=== PATIENT | male | born 1990 | race Caucasian/White ===

== ENCOUNTER 2019-08-09 12:32 | Emergency (ER) | payer MEDICAID ==
[~2019-08-09] VITALS: Ht 175.3 cm; Wt 68.0 kg
[2019-08-09 14:23] LABS: BASOPHILS % 0.6 % (0.0-2.0); EOSINOPHILS % 3.5 % (0.0-5.0); HEMATOCRIT. 42.4 % (42.0-52.0); HEMOGLOBIN. 14.8 g/dL (14.0-18.0); LYMPHOCYTES % 37.9 % (20.0-50.0); MEAN CORPUSCULAR HEMOGLOBIN 31.1 pg (28.0-32.0); MEAN CORPUSCULAR VOLUME 89.2 fL (80.0-94.0); MEAN PLATELET VOLUME 7.8 fl (7.4-10.4); MONOCYTES % 6.3 % (2.0-8.0); NEUTROPHILS % 51.7 % (40.0-76.0); PLATELET 352 x1000/uL (130-400); RED BLOOD CELL COUNT 4.75 mill/uL (4.7-6.1); RED CELL DISTRIBUTION WIDTH 13.5 % (11.6-14.6)
[2019-08-09 14:27] LABS: CHLORIDE 104 mEq/L (98-107)
[2019-08-09 14:31] LABS: ETHANOL BLOOD 279 mg/dL
[2019-08-09 15:39] VITALS: BP 110/59
== END 2019-08-09 16:30 | disposition home or self-care (01) ==
LOC: ER 12:32
DX: F10.229 Alcohol dependence with intoxication, unspecified (principal); Y90.8 Blood alcohol level of 240 mg/100 ml or more
CPT/HCPCS: 36415; 80053; 80320; 82962; 85025; 99283; G0480

== ENCOUNTER 2019-09-20 17:24 | Inpatient (IN) | payer MEDICAID ==
[~2019-09-20] VITALS: Ht 172.7 cm; Wt 73.9 kg
[2019-09-20] MEDS ORDERED: SODIUM CHLORIDE 0.9% 1,000 ML IV ONE (18:33)
[2019-09-20] MEDS ORDERED: MORPHINE SULFATE 4 MG/ML CPJ (NOT FOR IM USE) IV STA (18:33)
[2019-09-20] MEDS ORDERED: ONDANSETRON HCL 4MG/2ML INJ IV STA (18:33)
[2019-09-20 18:45] LABS: BASOPHILS % 0.2 % (0.0-2.0); EOSINOPHILS % 0.1 % (0.0-5.0); HEMATOCRIT. 43.3 % (42.0-52.0); HEMOGLOBIN. 15.1 g/dL (14.0-18.0); LYMPHOCYTES % 7.4 % (20.0-50.0); MEAN CORPUSCULAR VOLUME 88.9 fL (80.0-94.0); MEAN PLATELET VOLUME 8.7 fl (7.4-10.4); MONOCYTES % 9.6 % (2.0-8.0); NEUTROPHILS % 82.7 % (40.0-76.0); PLATELET 321 x1000/uL (130-400); RED BLOOD CELL COUNT 4.87 mill/uL (4.7-6.1); RED CELL DISTRIBUTION WIDTH 13.9 % (11.6-14.6)
[2019-09-20 18:51] LABS: CHLORIDE 101 mEq/L (98-107)
[2019-09-20] MEDS ORDERED: DEXAMETHASONE 10 MG/ML VIAL IV ONE (19:45)
[2019-09-20] MEDS ORDERED: PHENYTOIN SODIUM 500 MG in SODIUM CHLORIDE 0.9% 50 ML IV ONE (19:45)
[2019-09-20] MEDS ORDERED: MANNITOL 20% 250 ML IV ONE (19:45)
[2019-09-20] MEDS ORDERED: MANNITOL 20% 250 ML IV NR (20:00)
[2019-09-20] MEDS ORDERED: PHENYTOIN SODIUM 100MG/2ML VIAL IV ONE (20:07)
[2019-09-20] MEDS ORDERED: ONDANSETRON HCL 4MG/2ML INJ IV ONE (21:00)
[2019-09-20] MEDS ORDERED: MORPHINE SULFATE 4 MG/ML CPJ (NOT FOR IM USE) IV ONE (21:00)
[2019-09-20] MEDS ORDERED: IOHEXOL-350 100 ML BOTTLE ONE (21:00)
[2019-09-20] MEDS ORDERED: NICARDIPINE 100 MG in SODIUM CHLORIDE 0.9% 60 ML IV PRN (22:15)
[2019-09-20] MEDS: DEXT 5%/LACTATED RINGERS 1,000 ML IV SCH (22:15)
[2019-09-21] VITALS (76 sets, daily range): BP systolic 102–163; BP diastolic 46–99
[2019-09-21] MEDS ORDERED: MANNITOL 20% (20GM/100ML) BAG 500ML PREMIX IV SCH
[2019-09-21] MEDS: MANNITOL 20% 100 ML IV SCH ×6 (00:56→19:59)
[2019-09-21] MEDS: DEXAMETHASONE 4MG/ML 1ML VIAL IV SCH ×4 (02:04→19:58)
[2019-09-21] MEDS: DEXT 5%/LACTATED RINGERS 1,000 ML IV SCH ×2 (02:05→21:35)
[2019-09-21] MEDS: NICARDIPINE 100 MG in SODIUM CHLORIDE 0.9% 60 ML IV PRN (02:05)
[2019-09-21] MEDS: MORPHINE SULFATE 4 MG/ML CPJ (NOT FOR IM USE) IV PRN ×3 (02:56→19:59)
[2019-09-21] MEDS: ONDANSETRON HCL 4MG/2ML INJ IV PRN (03:39)
[2019-09-21 06:07] LABS: HEMATOCRIT. 44.9 % (42.0-52.0); HEMOGLOBIN. 15.4 g/dL (14.0-18.0); MEAN CORPUSCULAR HEMOGLOBIN 30.5 pg (28.0-32.0); MEAN CORPUSCULAR VOLUME 89.2 fL (80.0-94.0); MEAN PLATELET VOLUME 9.1 fl (7.4-10.4); PLATELET 319 x1000/uL (130-400); RED BLOOD CELL COUNT 5.03 mill/uL (4.7-6.1); RED CELL DISTRIBUTION WIDTH 14.3 % (11.6-14.6)
[2019-09-21 06:33] LABS: CHLORIDE 102 mEq/L (98-107)
[2019-09-21] MEDS ORDERED: LEVETIRACETAM 500MG PREMIX 100 ML IV SCH (09:00)
[2019-09-21 14:16] LABS: *AMPHETAMINES SCREEN URINE NEGATIVE (NEGATIVE); *BENZODIAZEPINES SCREEN URINE NEGATIVE (NEGATIVE); METHADONE URINE SCREEN NEGATIVE (NEGATIVE)
[2019-09-21 14:17] LABS: *COCAINE SCREEN URINE NEGATIVE (NEGATIVE); CANNABINOID URINE SCREEN NEGATIVE (NEGATIVE); OPIATES URINE SCREEN PRESUMTIVE POSITIVE (NEGATIVE); PHENCYCLIDINE URINE SCREEN NEGATIVE (NEGATIVE)
[2019-09-21 14:18] LABS: *BARBITURATES SCREEN URINE NEGATIVE (NEGATIVE)
[2019-09-21 15:09] LABS: PLATELET ESTIMATE NORMAL
[2019-09-21] MEDS: LEVETIRACETAM 500MG PREMIX 100 ML IV SCH (22:57)
[2019-09-22] VITALS (46 sets, daily range): BP systolic 76–142; BP diastolic 36–87
[2019-09-22] MEDS: DEXAMETHASONE 4MG/ML 1ML VIAL IV SCH ×4 (02:03→19:55)
[2019-09-22] MEDS: ONDANSETRON HCL 4MG/2ML INJ IV PRN ×2 (03:12→19:58)
[2019-09-22] MEDS: MORPHINE SULFATE 4 MG/ML CPJ (NOT FOR IM USE) IV PRN ×3 (03:27→19:58)
[2019-09-22 05:58] LABS: HEMATOCRIT. 41.2 % (42.0-52.0); HEMOGLOBIN. 14.4 g/dL (14.0-18.0); MEAN CORPUSCULAR HEMOGLOBIN 31.2 pg (28.0-32.0); MEAN CORPUSCULAR VOLUME 89.4 fL (80.0-94.0); MEAN PLATELET VOLUME 8.6 fl (7.4-10.4); PLATELET 320 x1000/uL (130-400); RED BLOOD CELL COUNT 4.61 mill/uL (4.7-6.1)
[2019-09-22 06:10] LABS: CHLORIDE 103 mEq/L (98-107)
[2019-09-22] MEDS: PANTOPRAZOLE SODIUM 40 MG/VIAL IV SCH (08:29)
[2019-09-22] MEDS: LEVETIRACETAM 500MG PREMIX 100 ML IV SCH ×2 (08:29→20:00)
[2019-09-22 10:20] LABS: PLATELET ESTIMATE NORMAL
[2019-09-23] VITALS (59 sets, daily range): BP systolic 94–154; BP diastolic 21–97
[2019-09-23] MEDS: DEXT 5%/LACTATED RINGERS 1,000 ML IV SCH ×2 (01:24→18:44)
[2019-09-23] MEDS: DEXAMETHASONE 4MG/ML 1ML VIAL IV SCH ×4 (01:24→20:04)
[2019-09-23] MEDS: MORPHINE SULFATE 4 MG/ML CPJ (NOT FOR IM USE) IV PRN ×3 (01:44→15:09)
[2019-09-23] MEDS: NICARDIPINE 100 MG in SODIUM CHLORIDE 0.9% 60 ML IV PRN (04:13)
[2019-09-23 06:11] LABS: CHLORIDE 98 mEq/L (98-107)
[2019-09-23 06:21] LABS: HEMATOCRIT. 44.9 % (42.0-52.0); HEMOGLOBIN. 15.8 g/dL (14.0-18.0); MEAN CORPUSCULAR HEMOGLOBIN 31.2 pg (28.0-32.0); MEAN CORPUSCULAR VOLUME 88.6 fL (80.0-94.0); MEAN PLATELET VOLUME 8.4 fl (7.4-10.4); RED BLOOD CELL COUNT 5.07 mill/uL (4.7-6.1)
[2019-09-23] MEDS: LEVETIRACETAM 500MG PREMIX 100 ML IV SCH ×2 (08:40→20:04)
[2019-09-23] MEDS: PANTOPRAZOLE SODIUM 40 MG/VIAL IV SCH (08:40)
[2019-09-23 10:43] LABS: ATYPICAL LYMPHOCYTES 1; PLATELET ESTIMATE NORMAL
[2019-09-23 10:44] LABS: PLATELET 368 x1000/uL (130-400)
[2019-09-24] VITALS (15 sets, daily range): BP systolic 122–140; BP diastolic 59–96
[2019-09-24] MEDS: ONDANSETRON HCL 4MG/2ML INJ IV PRN (00:44)
[2019-09-24] MEDS: MORPHINE SULFATE 4 MG/ML CPJ (NOT FOR IM USE) IV PRN (00:47)
[2019-09-24] MEDS: DEXT 5%/LACTATED RINGERS 1,000 ML IV SCH (01:43)
[2019-09-24] MEDS: DEXAMETHASONE 4MG/ML 1ML VIAL IV SCH ×4 (01:43→22:49)
[2019-09-24 05:41] LABS: CHLORIDE 95 mEq/L (98-107)
[2019-09-24 06:44] LABS: HEMATOCRIT. 45.3 % (42.0-52.0); MEAN CORPUSCULAR HEMOGLOBIN 31.2 pg (28.0-32.0); MEAN CORPUSCULAR VOLUME 88.2 fL (80.0-94.0); MEAN PLATELET VOLUME 8.4 fl (7.4-10.4); PLATELET 388 x1000/uL (130-400); RED BLOOD CELL COUNT 5.13 mill/uL (4.7-6.1); RED CELL DISTRIBUTION WIDTH 13.8 % (11.6-14.6)
[2019-09-24] MEDS: PANTOPRAZOLE SODIUM 40 MG/VIAL IV SCH (08:48)
[2019-09-24] MEDS: LEVETIRACETAM 500MG PREMIX 100 ML IV SCH ×2 (08:48→22:50)
[2019-09-24 10:52] LABS: PLATELET ESTIMATE NORMAL
[2019-09-25] VITALS: BP 124/77
[2019-09-25 04:00] VITALS: BP 121/74
[2019-09-25] MEDS: DEXAMETHASONE 4MG/ML 1ML VIAL IV SCH ×4 (05:16→17:28)
[2019-09-25] MEDS ORDERED: FAMOTIDINE 20MG/2ML VIAL IV SCH (09:00)
[2019-09-25] MEDS ORDERED: FOLIC ACID 1MG TABLET PO SCH (09:00)
[2019-09-25] MEDS ORDERED: THIAMINE HCL 100MG TABLET PO SCH (09:00)
[2019-09-25] MEDS: LEVETIRACETAM 500MG PREMIX 100 ML IV SCH (09:10)
[2019-09-25] MEDS ORDERED: SODIUM CHLORIDE 0.9% 1,000 ML IV SCH (11:30)
[2019-09-25 12:00] VITALS: BP 114/74
[2019-09-25 12:35] LABS: HEMATOCRIT. 48.7 % (42.0-52.0); HEMOGLOBIN. 17.5 g/dL (14.0-18.0); MEAN CORPUSCULAR HEMOGLOBIN 31.3 pg (28.0-32.0); MEAN CORPUSCULAR VOLUME 87.1 fL (80.0-94.0); MEAN PLATELET VOLUME 7.6 fl (7.4-10.4); PLATELET 402 x1000/uL (130-400); RED BLOOD CELL COUNT 5.59 mill/uL (4.7-6.1)
[2019-09-25 12:42] LABS: CHLORIDE 95 mEq/L (98-107)
[2019-09-25 14:27] LABS: PLATELET ESTIMATE SLIGHTLY INCREASED
== END 2019-09-25 18:01 | DRG 55 ==
LOC: ER 17:24 → MICUSO 21:35 → 5EST 09-21 01:20 → 6EST 09-24 12:00
PROVIDERS: ADMIT Internal Medicine; ATTEND Internal Medicine
DX: S06.350A Traumatic hemorrhage of left cerebrum without loss of consciousness, initial encounter (principal); E87.1 Hypo-osmolality and hyponatremia; R13.10 Dysphagia, unspecified; R47.01 Aphasia; Z78.1 Physical restraint status; S02.19XA Other fracture of base of skull, initial encounter for closed fracture; S02.2XXA Fracture of nasal bones, initial encounter for closed fracture; D72.829 Elevated white blood cell count, unspecified; R26.9 Unspecified abnormalities of gait and mobility; R40.2410 Glasgow coma scale score 13-15, unspecified time; R74.0 Nonspecific elevation of levels of transaminase and lactic acid dehydrogenase [LDH]; E87.6 Hypokalemia; Z87.891 Personal history of nicotine dependence; Y08.89XA Assault by other specified means, initial encounter; Y93.89 Activity, other specified; Y92.89 Other specified places as the place of occurrence of the external cause; Y99.8 Other external cause status
CPT/HCPCS: 36415; 70486; 70496; 80048; 80053; 80305; 83036; 85025; 92610; 93970; 96374; 97116; 97162; 97166; 99291; C9113; J1100; J1165; J1953; J2270; J2405; J3490; J7030; J7050; Q9967

== ENCOUNTER 2019-09-25 18:05 | Inpatient (IN) | payer MEDICAID ==
[~2019-09-25] VITALS: Ht 167.6 cm; Wt 73.5 kg
[2019-09-25] MEDS ORDERED: ONDANSETRON HCL 4MG TABLET PO PRN (18:45)
[2019-09-25] MEDS ORDERED: MORPHINE SULFATE 4 MG/ML CPJ (NOT FOR IM USE) IV PRN (18:45)
[2019-09-25 19:30] VITALS: BP 137/90
[2019-09-25 20:02] VITALS: BP 121/69
[2019-09-25] MEDS: FAMOTIDINE 20MG TABLET PO SCH (20:40)
[2019-09-25] MEDS: LEVETIRACETAM 500MG TABLET PO SCH (20:40)
[2019-09-26] MEDS ORDERED: HYDROCODONE/ACETAMINOPHEN 5/325MG TABLET PO PRN (06:45)
[2019-09-26 06:52] LABS: HEMOGLOBIN. 17.1 g/dL (14.0-18.0); MEAN CORPUSCULAR HEMOGLOBIN 31.2 pg (28.0-32.0); MEAN CORPUSCULAR VOLUME 87.8 fL (80.0-94.0); MEAN PLATELET VOLUME 8.1 fl (7.4-10.4); PLATELET 431 x1000/uL (130-400); RED BLOOD CELL COUNT 5.47 mill/uL (4.7-6.1); RED CELL DISTRIBUTION WIDTH 14.5 % (11.6-14.6)
[2019-09-26 07:35] LABS: CHLORIDE 96 mEq/L (98-107)
[2019-09-26] MEDS ORDERED: POTASSIUM CHLORIDE 20MEQ/PACKET PO SCH (07:45)
[2019-09-26] MEDS: ACETAMINOPHEN 325MG TABLET PO PRN (07:49)
[2019-09-26 08:00] VITALS: BP 122/78
[2019-09-26] MEDS: FAMOTIDINE 20MG TABLET PO SCH ×2 (08:29→21:19)
[2019-09-26] MEDS: FOLIC ACID 1MG TABLET PO SCH (08:29)
[2019-09-26] MEDS: LEVETIRACETAM 500MG TABLET PO SCH ×2 (08:29→21:19)
[2019-09-26] MEDS: THIAMINE HCL 100MG TABLET PO SCH (08:30)
[2019-09-26] MEDS: DEXAMETHASONE 4MG/ML 1ML VIAL IV SCH ×2 (08:30→17:31)
[2019-09-26 14:58] LABS: PLATELET ESTIMATE NORMAL
[2019-09-26] MEDS ORDERED: LOPERAMIDE HCL 2MG CAPSULE PO NR (16:00)
[2019-09-26 20:00] VITALS: BP 124/73
[2019-09-27 06:28] LABS: BASOPHILS % 0.1 % (0.0-2.0); EOSINOPHILS % 0.7 % (0.0-5.0); HEMATOCRIT. 47.6 % (42.0-52.0); LYMPHOCYTES % 15.2 % (20.0-50.0); MEAN CORPUSCULAR HEMOGLOBIN 31.4 pg (28.0-32.0); MEAN CORPUSCULAR VOLUME 87.9 fL (80.0-94.0); MEAN PLATELET VOLUME 7.7 fl (7.4-10.4); MONOCYTES % 12.4 % (2.0-8.0); NEUTROPHILS % 71.6 % (40.0-76.0); PLATELET 384 x1000/uL (130-400); RED BLOOD CELL COUNT 5.42 mill/uL (4.7-6.1); RED CELL DISTRIBUTION WIDTH 14.1 % (11.6-14.6)
[2019-09-27 06:42] LABS: CHLORIDE 98 mEq/L (98-107)
[2019-09-27 06:48] LABS: PHOSPHORUS 3.4 mg/dL (2.5-4.9); TOTAL IRON BINDING CAPACITY 373 ug/dL (250-450)
[2019-09-27 06:49] LABS: LDL CHOLESTEROL 72 mg/dL (5-100)
[2019-09-27 06:50] LABS: CREATINE KINASE 76 IU/L (39-308); HDL CHOLESTEROL 56 mg/dL (40-59)
[2019-09-27 07:12] LABS: CORTISOL 2.5 ucg/dL; PROSTRATE SPECIFIC AG TOTAL 1.38 ng/mL (0.0-4.0)
[2019-09-27 08:04] VITALS: BP_SYST 132
[2019-09-27] MEDS: DEXAMETHASONE 4MG/ML 1ML VIAL IV SCH ×2 (10:16→16:10)
[2019-09-27] MEDS: FOLIC ACID 1MG TABLET PO SCH (10:16)
[2019-09-27] MEDS: THIAMINE HCL 100MG TABLET PO SCH (10:16)
[2019-09-27] MEDS: LEVETIRACETAM 500MG TABLET PO SCH (10:16)
[2019-09-27] MEDS: FAMOTIDINE 20MG TABLET PO SCH ×2 (10:16→22:27)
[2019-09-27] MEDS: LACTULOSE 20G/30ML UDC PO SCH ×2 (13:36→22:27)
[2019-09-27 14:55] LABS: HEPATITIS B SURFACE ANTIGEN NEGATIVE
[2019-09-27 15:25] LABS: HEPATITIS A AB IGM NEGATIVE (NEGATIVE)
[2019-09-27 20:00] VITALS: BP 118/73
[2019-09-27 22:27] LABS: CLARITY URINE CLEAR (CLEAR); COLOR URINE YELLOW (YELLOW); KETONES URINE NEGATIVE (NEGATIVE); LEUKOCYTE ESTERASE URINE NEGATIVE (NEGATIVE); NITRITE URINE NEGATIVE (NEGATIVE); OCCULT BLOOD URINE NEGATIVE (NEGATIVE); PH URINE 5.5 (4.5-8.0); PROTEIN URINE NEGATIVE (NEGATIVE); SPECIFIC GRAVITY URINE 1.024 (1.005-1.030); UROBILINOGEN URINE 0.2 E.U./dL (0.2-1.0)
[2019-09-27] MEDS: LEVETIRACETAM 500MG PREMIX 100 ML IV SCH (22:27)
[2019-09-28 06:31] LABS: HEMATOCRIT. 46.5 % (42.0-52.0); HEMOGLOBIN. 16.5 g/dL (14.0-18.0); MEAN CORPUSCULAR HEMOGLOBIN 31.2 pg (28.0-32.0); MEAN CORPUSCULAR VOLUME 87.9 fL (80.0-94.0); MEAN PLATELET VOLUME 7.7 fl (7.4-10.4); PLATELET 446 x1000/uL (130-400); RED BLOOD CELL COUNT 5.29 mill/uL (4.7-6.1); RED CELL DISTRIBUTION WIDTH 13.9 % (11.6-14.6)
[2019-09-28] MEDS: LACTULOSE 20G/30ML UDC PO SCH ×2 (06:47→13:30)
[2019-09-28 07:14] LABS: CHLORIDE 98 mEq/L (98-107)
[2019-09-28 08:20] VITALS: BP 119/87
[2019-09-28] MEDS: LEVETIRACETAM 500MG PREMIX 100 ML IV SCH ×3 (08:38→21:05)
[2019-09-28] MEDS: THIAMINE HCL 100MG TABLET PO SCH (08:38)
[2019-09-28] MEDS: LAMOTRIGINE 25MG TABLET PO SCH (08:38)
[2019-09-28] MEDS: FOLIC ACID 1MG TABLET PO SCH (08:38)
[2019-09-28] MEDS: DEXAMETHASONE 4MG/ML 1ML VIAL IV SCH (08:38)
[2019-09-28 11:24] LABS: PLATELET ESTIMATE SLIGHTLY INCREASED
[2019-09-28 20:00] VITALS: BP 114/68
[2019-09-28] MEDS: FAMOTIDINE 20MG TABLET PO SCH ×2 (21:00→21:05)
[2019-09-29 08:29] VITALS: BP 119/76
[2019-09-29] MEDS: LACTULOSE 20G/30ML UDC PO SCH (09:45)
[2019-09-29] MEDS: LAMOTRIGINE 25MG TABLET PO SCH (09:46)
[2019-09-29] MEDS: FOLIC ACID 1MG TABLET PO SCH (09:46)
[2019-09-29] MEDS: DEXAMETHASONE 2MG TABLET PO SCH ×2 (09:46→17:22)
[2019-09-29] MEDS: FAMOTIDINE 20MG TABLET PO SCH ×2 (09:46→21:53)
[2019-09-29] MEDS: THIAMINE HCL 100MG TABLET PO SCH (09:47)
[2019-09-29] MEDS: LEVETIRACETAM 500MG PREMIX 100 ML IV SCH (09:48)
[2019-09-29] MEDS: ACETAMINOPHEN 325MG TABLET PO PRN (09:48)
[2019-09-29] MEDS ORDERED: LEVETIRACETAM 500MG TABLET PO NR (14:15)
[2019-09-29 20:00] VITALS: BP 116/68
[2019-09-29] MEDS: LEVETIRACETAM 500MG TABLET PO SCH (21:53)
[2019-09-30 06:36] LABS: BASOPHILS % 0.3 % (0.0-2.0); EOSINOPHILS % 0.6 % (0.0-5.0); HEMATOCRIT. 44.3 % (42.0-52.0); HEMOGLOBIN. 15.6 g/dL (14.0-18.0); LYMPHOCYTES % 23.9 % (20.0-50.0); MEAN CORPUSCULAR HEMOGLOBIN 31.4 pg (28.0-32.0); MEAN CORPUSCULAR VOLUME 88.9 fL (80.0-94.0); MEAN PLATELET VOLUME 7.5 fl (7.4-10.4); MONOCYTES % 12.5 % (2.0-8.0); NEUTROPHILS % 62.7 % (40.0-76.0); PLATELET 492 x1000/uL (130-400); RED BLOOD CELL COUNT 4.98 mill/uL (4.7-6.1); RED CELL DISTRIBUTION WIDTH 14.3 % (11.6-14.6)
[2019-09-30 06:37] LABS: CHLORIDE 100 mEq/L (98-107)
[2019-09-30 07:50] VITALS: BP 131/74
[2019-09-30 07:53] VITALS: BP 131/74
[2019-09-30] MEDS: LACTULOSE 20G/30ML UDC PO SCH (08:14)
[2019-09-30] MEDS: FAMOTIDINE 20MG TABLET PO SCH ×2 (08:14→21:25)
[2019-09-30] MEDS: LAMOTRIGINE 25MG TABLET PO SCH (08:15)
[2019-09-30] MEDS: THIAMINE HCL 100MG TABLET PO SCH (08:15)
[2019-09-30] MEDS: LEVETIRACETAM 500MG TABLET PO SCH ×2 (08:15→21:25)
[2019-09-30] MEDS: FOLIC ACID 1MG TABLET PO SCH (08:15)
[2019-09-30] MEDS ORDERED: DEXAMETHASONE 2MG TABLET PO SCH (09:00)
[2019-09-30] MEDS: ACETAMINOPHEN 325MG TABLET PO PRN (11:57)
[2019-09-30 20:00] VITALS: BP 120/68
[2019-10-01 05:08] LABS: 25-HYDROXY VITAMIN D3 36 ng/mL (.)
[2019-10-01 07:55] VITALS: BP 118/69
[2019-10-01] MEDS: LACTULOSE 20G/30ML UDC PO SCH (09:56)
[2019-10-01] MEDS: THIAMINE HCL 100MG TABLET PO SCH (09:57)
[2019-10-01] MEDS: FOLIC ACID 1MG TABLET PO SCH (09:57)
[2019-10-01] MEDS: LAMOTRIGINE 25MG TABLET PO SCH (09:57)
[2019-10-01] MEDS: LEVETIRACETAM 500MG TABLET PO SCH ×2 (09:57→21:03)
[2019-10-01] MEDS: FAMOTIDINE 20MG TABLET PO SCH ×2 (09:57→21:03)
[2019-10-01] MEDS: ERGOCALCIFEROL 50000UNITS CAPSULE PO SCH (15:51)
[2019-10-01] MEDS: ACETAMINOPHEN 325MG TABLET PO PRN (16:06)
[2019-10-01 20:00] VITALS: BP 113/69
[2019-10-02] MEDS ORDERED: HYDROCODONE/ACETAMINOPHEN 5/325MG TABLET PO PRN (02:15)
[2019-10-02 07:34] VITALS: BP 119/73
[2019-10-02] MEDS: FAMOTIDINE 20MG TABLET PO SCH ×2 (08:51→20:20)
[2019-10-02] MEDS: LACTULOSE 20G/30ML UDC PO SCH (08:51)
[2019-10-02] MEDS: THIAMINE HCL 100MG TABLET PO SCH (08:51)
[2019-10-02] MEDS: LAMOTRIGINE 25MG TABLET PO SCH (08:51)
[2019-10-02] MEDS: LEVETIRACETAM 500MG TABLET PO SCH ×2 (08:51→20:20)
[2019-10-02] MEDS: FOLIC ACID 1MG TABLET PO SCH (08:51)
[2019-10-02] MEDS: ACETAMINOPHEN 325MG TABLET PO PRN (16:38)
[2019-10-02 20:00] VITALS: BP 119/68
[2019-10-03 07:27] LABS: BASOPHILS % 0.7 % (0.0-2.0); EOSINOPHILS % 0.8 % (0.0-5.0); HEMATOCRIT. 40.7 % (42.0-52.0); HEMOGLOBIN. 14.5 g/dL (14.0-18.0); MEAN CORPUSCULAR HEMOGLOBIN 31.4 pg (28.0-32.0); MEAN CORPUSCULAR VOLUME 88.2 fL (80.0-94.0); MEAN PLATELET VOLUME 7.1 fl (7.4-10.4); MONOCYTES % 9.8 % (2.0-8.0); NEUTROPHILS % 66.7 % (40.0-76.0); PLATELET 615 x1000/uL (130-400); RED BLOOD CELL COUNT 4.61 mill/uL (4.7-6.1); RED CELL DISTRIBUTION WIDTH 14.3 % (11.6-14.6)
[2019-10-03 07:35] LABS: CHLORIDE 103 mEq/L (98-107)
[2019-10-03 08:22] VITALS: BP 110/68
[2019-10-03] MEDS: FOLIC ACID 1MG TABLET PO SCH (09:39)
[2019-10-03] MEDS: LEVETIRACETAM 500MG TABLET PO SCH ×2 (09:39→20:12)
[2019-10-03] MEDS: LAMOTRIGINE 25MG TABLET PO SCH (09:39)
[2019-10-03] MEDS: LACTULOSE 20G/30ML UDC PO SCH (09:39)
[2019-10-03] MEDS: THIAMINE HCL 100MG TABLET PO SCH (09:40)
[2019-10-03] MEDS: FAMOTIDINE 20MG TABLET PO SCH ×2 (09:40→20:12)
[2019-10-03 20:00] VITALS: BP 117/78
[2019-10-04 07:56] VITALS: BP 117/63
[2019-10-04] MEDS: FOLIC ACID 1MG TABLET PO SCH (08:57)
[2019-10-04] MEDS: THIAMINE HCL 100MG TABLET PO SCH (08:57)
[2019-10-04] MEDS: LEVETIRACETAM 500MG TABLET PO SCH ×2 (08:57→20:33)
[2019-10-04] MEDS: LAMOTRIGINE 25MG TABLET PO SCH (08:57)
[2019-10-04] MEDS: FAMOTIDINE 20MG TABLET PO SCH ×2 (08:57→20:34)
[2019-10-04] MEDS: LACTULOSE 20G/30ML UDC PO SCH (08:57)
[2019-10-04] MEDS: ACETAMINOPHEN 325MG TABLET PO PRN (16:35)
[2019-10-04 20:00] VITALS: BP 108/59
[2019-10-05 06:07] LABS: BASOPHILS % 0.8 % (0.0-2.0); EOSINOPHILS % 1.1 % (0.0-5.0); HEMATOCRIT. 41.5 % (42.0-52.0); HEMOGLOBIN. 14.7 g/dL (14.0-18.0); LYMPHOCYTES % 23.8 % (20.0-50.0); MEAN CORPUSCULAR HEMOGLOBIN 31.2 pg (28.0-32.0); MEAN CORPUSCULAR VOLUME 88.2 fL (80.0-94.0); MEAN PLATELET VOLUME 6.9 fl (7.4-10.4); MONOCYTES % 9.8 % (2.0-8.0); NEUTROPHILS % 64.5 % (40.0-76.0); PLATELET 618 x1000/uL (130-400); RED BLOOD CELL COUNT 4.71 mill/uL (4.7-6.1); RED CELL DISTRIBUTION WIDTH 14.2 % (11.6-14.6)
[2019-10-05 07:49] LABS: CHLORIDE 102 mEq/L (98-107)
[2019-10-05 08:00] VITALS: BP 110/70
[2019-10-05] MEDS: LEVETIRACETAM 500MG TABLET PO SCH ×2 (08:53→21:26)
[2019-10-05] MEDS: LAMOTRIGINE 25MG TABLET PO SCH (08:53)
[2019-10-05] MEDS: FOLIC ACID 1MG TABLET PO SCH (08:53)
[2019-10-05] MEDS: THIAMINE HCL 100MG TABLET PO SCH (08:53)
[2019-10-05] MEDS: LACTULOSE 20G/30ML UDC PO SCH (08:53)
[2019-10-05] MEDS: FAMOTIDINE 20MG TABLET PO SCH ×2 (08:53→21:26)
[2019-10-05 20:00] VITALS: BP 113/67
[2019-10-06 08:00] VITALS: BP 121/73
[2019-10-06] MEDS: LACTULOSE 20G/30ML UDC PO SCH (08:46)
[2019-10-06] MEDS: FAMOTIDINE 20MG TABLET PO SCH ×2 (08:47→22:35)
[2019-10-06] MEDS: LAMOTRIGINE 25MG TABLET PO SCH (08:47)
[2019-10-06] MEDS: THIAMINE HCL 100MG TABLET PO SCH (08:48)
[2019-10-06] MEDS: ACETAMINOPHEN 325MG TABLET PO PRN (08:48)
[2019-10-06] MEDS: LEVETIRACETAM 500MG TABLET PO SCH ×2 (08:48→22:33)
[2019-10-06] MEDS: FOLIC ACID 1MG TABLET PO SCH (08:49)
[2019-10-06 20:00] VITALS: BP 114/58
[2019-10-07 08:00] VITALS: BP 108/58
[2019-10-07] MEDS: LACTULOSE 20G/30ML UDC PO SCH (08:42)
[2019-10-07] MEDS: THIAMINE HCL 100MG TABLET PO SCH (08:42)
[2019-10-07] MEDS: LEVETIRACETAM 500MG TABLET PO SCH ×2 (08:43→21:16)
[2019-10-07] MEDS: LAMOTRIGINE 25MG TABLET PO SCH (08:43)
[2019-10-07] MEDS: FOLIC ACID 1MG TABLET PO SCH (08:43)
[2019-10-07] MEDS ORDERED: KEPP500 PO (13:00)
[2019-10-07 20:00] VITALS: BP 116/63
[2019-10-07] MEDS: FAMOTIDINE 20MG TABLET PO SCH ×2 (21:16→21:17)
[2019-10-08 08:30] VITALS: BP 115/69
[2019-10-08 08:33] LABS: BASOPHILS % 0.8 % (0.0-2.0); EOSINOPHILS % 1.5 % (0.0-5.0); HEMATOCRIT. 40.9 % (42.0-52.0); HEMOGLOBIN. 14.4 g/dL (14.0-18.0); LYMPHOCYTES % 25.8 % (20.0-50.0); MEAN CORPUSCULAR HEMOGLOBIN 31.2 pg (28.0-32.0); MEAN CORPUSCULAR VOLUME 88.8 fL (80.0-94.0); MEAN PLATELET VOLUME 7.4 fl (7.4-10.4); MONOCYTES % 9.7 % (2.0-8.0); NEUTROPHILS % 62.2 % (40.0-76.0); PLATELET 589 x1000/uL (130-400); RED BLOOD CELL COUNT 4.61 mill/uL (4.7-6.1); RED CELL DISTRIBUTION WIDTH 14.3 % (11.6-14.6)
[2019-10-08 08:45] LABS: CHLORIDE 106 mEq/L (98-107)
[2019-10-08] MEDS: LACTULOSE 20G/30ML UDC PO SCH (09:00)
[2019-10-08] MEDS: ACETAMINOPHEN 325MG TABLET PO PRN (10:17)
[2019-10-08] MEDS: LEVETIRACETAM 500MG TABLET PO SCH (10:17)
[2019-10-08] MEDS: ERGOCALCIFEROL 50000UNITS CAPSULE PO SCH (10:17)
[2019-10-08] MEDS: FOLIC ACID 1MG TABLET PO SCH (10:17)
[2019-10-08] MEDS: LAMOTRIGINE 25MG TABLET PO SCH (10:17)
[2019-10-08] MEDS: THIAMINE HCL 100MG TABLET PO SCH (10:18)
[2019-10-08] MEDS: FAMOTIDINE 20MG TABLET PO SCH (10:18)
[2019-10-08 10:20] VITALS: BP 115/69
== END 2019-10-08 15:00 | disposition home health service (06) | DRG 55 ==
PROVIDERS: ADMIT Physical Medicine & Rehabilitation Spinal Cord Injury Medicine; ATTEND Internal Medicine
PROC: 4A00X4Z Measurement of Central Nervous Electrical Activity, External Approach (ICD-10-PCS; principal; 2019-10-05)
DX: S06.360A Traumatic hemorrhage of cerebrum, unspecified, without loss of consciousness, initial encounter (principal); G93.40 Encephalopathy, unspecified; E87.8 Other disorders of electrolyte and fluid balance, not elsewhere classified; R13.10 Dysphagia, unspecified; E87.1 Hypo-osmolality and hyponatremia; R47.01 Aphasia; D72.829 Elevated white blood cell count, unspecified; E87.6 Hypokalemia; R47.1 Dysarthria and anarthria; F19.10 Other psychoactive substance abuse, uncomplicated; N39.0 Urinary tract infection, site not specified; F10.10 Alcohol abuse, uncomplicated; R26.9 Unspecified abnormalities of gait and mobility; R74.0 Nonspecific elevation of levels of transaminase and lactic acid dehydrogenase [LDH]; Z79.899 Other long term (current) drug therapy; Z87.81 Personal history of (healed) traumatic fracture; Y08.89XA Assault by other specified means, initial encounter; Y93.89 Activity, other specified; Y92.89 Other specified places as the place of occurrence of the external cause; Y99.8 Other external cause status; Z87.820 Personal history of traumatic brain injury
CPT/HCPCS: 36415; 76700; 80048; 80053; 80061; 81003; 82140; 82306; 82533; 82550; 82607; 82728; 82746; 83540; 83550; 83735; 83930; 83935; 84100; 84134; 84153; 84443; 85025; 86705; 86709; 86803; 87077; 87186; 87340; 92523; 92610; 93970; 97110; 97112; 97116; 97162; 97166; 97530; 97535; J1100; J1953; J8540; Q0162; G0103

== ENCOUNTER 2019-10-11 19:52 | Emergency (ER) | payer MEDICAID ==
[~2019-10-11] VITALS: Ht 170.2 cm; Wt 68.0 kg
[~2019-10-11 19:52] MED LIST: KEPP500 PO
[2019-10-11] MEDS ORDERED: ACETAMINOPHEN 500MG TABLET PO ONE (21:30)
[2019-10-12 04:02] VITALS: BP 117/78
== END 2019-10-12 04:00 | disposition home or self-care (01) ==
LOC: ER 19:52
DX: S02.19XA Other fracture of base of skull, initial encounter for closed fracture (principal); S00.03XA Contusion of scalp, initial encounter; Y04.0XXA Assault by unarmed brawl or fight, initial encounter; Y93.89 Activity, other specified; Y92.89 Other specified places as the place of occurrence of the external cause
CPT/HCPCS: 99285

== ENCOUNTER 2020-01-14 15:09 | Emergency (ER) | payer MEDICAID ==
[~2020-01-14] VITALS: Ht 167.6 cm; Wt 73.0 kg
[2020-01-15 07:51] LABS: BASOPHILS % 0.3 % (0.0-2.0); EOSINOPHILS % 1.8 % (0.0-5.0); HEMATOCRIT. 46.6 % (42.0-52.0); LYMPHOCYTES % 24.6 % (20.0-50.0); MEAN CORPUSCULAR HEMOGLOBIN 30.3 pg (28.0-32.0); MEAN CORPUSCULAR VOLUME 88.5 fL (80.0-94.0); MEAN PLATELET VOLUME 8.2 fl (7.4-10.4); MONOCYTES % 7.4 % (2.0-8.0); NEUTROPHILS % 65.9 % (40.0-76.0); PLATELET 440 x1000/uL (130-400); RED BLOOD CELL COUNT 5.27 mill/uL (4.7-6.1); RED CELL DISTRIBUTION WIDTH 12.8 % (11.6-14.6)
[2020-01-15 07:56] LABS: CHLORIDE 107 mEq/L (98-107)
[2020-01-15 07:58] LABS: CLARITY URINE CLEAR (CLEAR); COLOR URINE YELLOW (YELLOW); KETONES URINE NEGATIVE (NEGATIVE); LEUKOCYTE ESTERASE URINE NEGATIVE (NEGATIVE); NITRITE URINE NEGATIVE (NEGATIVE); OCCULT BLOOD URINE NEGATIVE (NEGATIVE); PH URINE 5.5 (4.5-8.0); PROTEIN URINE NEGATIVE (NEGATIVE); SPECIFIC GRAVITY URINE 1.023 (1.005-1.030); UROBILINOGEN URINE 0.2 E.U./dL (0.2-1.0)
[2020-01-15 08:00] LABS: ETHANOL BLOOD < 10 mg/dL
[2020-01-15 08:14] LABS: *AMPHETAMINES SCREEN URINE NEGATIVE (NEGATIVE); *BARBITURATES SCREEN URINE NEGATIVE (NEGATIVE); *BENZODIAZEPINES SCREEN URINE NEGATIVE (NEGATIVE); *COCAINE SCREEN URINE NEGATIVE (NEGATIVE)
[2020-01-15 08:15] LABS: CANNABINOID URINE SCREEN NEGATIVE (NEGATIVE); METHADONE URINE SCREEN NEGATIVE (NEGATIVE); OPIATES URINE SCREEN NEGATIVE (NEGATIVE); PHENCYCLIDINE URINE SCREEN NEGATIVE (NEGATIVE)
[2020-01-16] MEDS ORDERED: LEVETIRACETAM 500MG TABLET PO ONE (21:15)
[2020-01-16 21:59] VITALS: BP 120/75
== END 2020-01-16 22:18 ==
LOC: ER 15:09
DX: R45.851 Suicidal ideations (principal); R44.0 Auditory hallucinations; Z20.828 Contact with and (suspected) exposure to other viral communicable diseases; F15.10 Other stimulant abuse, uncomplicated
CPT/HCPCS: 82542; 87635; 99285